=== PATIENT | female | born 1980 | race Caucasian/White ===

== ENCOUNTER 2018-08-03 05:35 | Observation (INO) | payer OTHER ==
[2018-08-03] MEDS ORDERED: LR 1,000 ML IV ONE (05:44)
[2018-08-03] MEDS ORDERED: BACITRACIN ZINC 14.2 GM OINTTUBE TP ONE (06:59)
[2018-08-03] MEDS ORDERED: BUPIVACAINE/EPI 0.5% 30 ML SDV ONE (06:59)
[2018-08-03] MEDS ORDERED: MIDAZOLAM 2 MG/2 ML VIAL IVP ONE (07:00)
[2018-08-03] MEDS ORDERED: OXYMETAZOLINE 30 ML NASAL SPRAY ONE (07:00)
[2018-08-03] MEDS ORDERED: LIDO/EPI 2%** Not for Epidural 20 ML MDV ONE (07:00)
[2018-08-03] MEDS ORDERED: SCOPOLAMINE HYDROBROMIDE 1 MG/3 DAYS PATCH TD ONE (07:00)
[2018-08-03] MEDS ORDERED: PROPOFOL/EMULSION 500 MG/50 ML BOTTLE IV ONE (07:08)
[2018-08-03] MEDS ORDERED: fentaNYL 250 MCG/5 ML INJ ONE (07:08)
[2018-08-03] MEDS ORDERED: PROPOFOL 200 MG/20 ML VIAL ONE ×5 (07:08→08:32)
[2018-08-03] MEDS ORDERED: LIDOCAINE 2% 5 ML SDV ONE ×2 (07:10→07:11)
[2018-08-03] MEDS ORDERED: ROCURONIUM 50 MG/5 ML VIAL ONE (07:10)
[2018-08-03] MEDS ORDERED: DEXAMETHASONE 4 MG/ML VIAL ONE ×3 (07:10→08:24)
--- NOTE | 2018-08-03 07:12 | PDHPUP ---
History & Physical Update H&P update statement: This history and physical update is based on an assessment of the patient which was completed after admission or registration (within 24 hours), but prior to the surgery/procedure. H&P update: H&P reviewed & patient examined, no change in patient's condition since H&P completed
--- NOTE | 2018-08-03 07:14 | PDANEPAE ---
ANE History of Present Illness Obstructive sleep apnea ANE Past Medical History Past Medical History: Pt states has had severe PONV with prior surgeries. - Cardiovascular History Hx Hypertension: No Hx Arrhythmias: No Hx Chest Pain: No Hx Coronary Artery / Peripheral Vascular Disease: No Hx CHF / Valvular Disease: No Hx Palpitations: No Cardiovascular History Comment: HAS OCCAS SKIPPED BEAT - HAS POSS SL MURMUR DX IN PAST - - Pulmonary History Hx COPD: No Hx Asthma/Reactive Airway Disease: No Hx Recent Upper Respiratory Infection: No Hx Oxygen in Use at Home: No Hx Sleep Apnea: No Sleep Apnea Screening Result - Last Documented: Positive Pulmonary History Comment: POS PRINCE - NO CPAP - Neurologic History Hx Cerebrovascular Accident: No Hx Seizures: No Hx Dementia: No - Endocrine History Hx Diabetes: No Hypothyroid: No Obesity: no - Renal History Hx Renal Disorders: No - Liver History Hx Hepatic Disorders: No - Neurological & Psychiatric Hx Hx Neurological and Psychiatric Disorders: No - Cancer History Hx Cancer: No - Congenital Disorder History Hx Congenital Disorders: No - GI History Hx Gastrointestinal Disorders: No - Other Health History Other Health History: NEG - Chronic Pain History Chronic Pain: No - Surgical History Prior Surgeries: RHINOPLASTY/SEPTOPLASTY ANE Review of Systems Review of Systems: - Exercise capacity Exercise capacity: >=4 METS METS (RN): 5 METS ANE Patient History - Allergies Allergies/Adverse Reactions: nitrofurantoin [From Macrobid] Allergy (Verified 06/27/18 10:29) Hives - Home Medications Home Medications: Levonorgestrel [[place]lyn] 1 each [id number] 06/27/18 [Last Taken 12/31/17] Spironolactone [Aldactone 25 MG (*)] 25 mg PO DAILY 06/27/18 [Last Taken ] - NPO status NPO Since - Liquids (Date): 08/02/18 NPO Since - Liquids (Time): 21:00 NPO Since - Solids (Date): 08/02/18 NPO Since - Solids (Time): 19:00 - Smoking Hx Smoking Status: Never smoked - Family Anes Hx Family Hx Anesthesia Complications: NEG ANE Labs/Vital Signs - Vital Signs Blood Pressure: 131/83 Heart Rate: 90 Respiratory Rate: 16 O2 Sat (%): 100 Height: 162.56 cm Weight: 61.235 kg ANE Physical Exam - Airway Neck exam: FROM Mallampati Score: Class 2 Mouth exam: normal dental/mouth exam - Pulmonary Pulmonary: no respiratory distress - Cardiovascular Cardiovascular: regular rate and rhythym - ASA Status ASA Status: I ANE Anesthesia Plan Anesthesia Plan: general endotracheal anesthesia (Discussed using TIVA, scopolamine patch, zofran, and dexamethasone to try and prevent PONV)
[2018-08-03] MEDS ORDERED: ONDANSETRON 4 MG/2 ML VIAL ONE (08:02)
[2018-08-03] MEDS ORDERED: ONDANSETRON 4 MG/2 ML VIAL IVP PRN (08:47)
--- NOTE | 2018-08-03 08:47 | POSTOPPROG ---
Post Op Note Date of Operation: 08/03/18 Surgeon: Sean Chávez Anesthesia: GET(General Endotracheal) Pre-op Diagnosis: PRINCE Post-op Diagnosis: PRINCE Indication: PRINCE Procedure: [place] and lingual tonsillectomy, Inf turbinate SMR and outfx Findings: Tonsillar and turbinate hypertrophy Inf/Abcess present in the surg proc area at time of surgery?: No Depth: Deep Incisional (Fascial) EBL: Minimal Complications: no Specimen(s): tonsils
[2018-08-03] MEDS ORDERED: LR 500 ML IV PRN (08:49)
[2018-08-03] MEDS ORDERED: NALOXONE HCL 0.4 MG/ML INJ IVP PRN (08:49)
[2018-08-03] MEDS ORDERED: MEPERIDINE 25 MG/0.5 ML AMP IVP PRN (08:49)
[2018-08-03] MEDS ORDERED: HYDROmorphONE/DILAUDID 2 MG/ML INJ IVP PRN (08:49)
[2018-08-03] MEDS ORDERED: HYDROCODONE/APAP 5/325 TAB PO PRN (08:49)
[2018-08-03] MEDS ORDERED: METOCLOPRAMIDE 10 MG/2 ML VIAL IVP PRN (08:49)
[2018-08-03] MEDS ORDERED: LABETALOL HCL 5 MG/ML 20 ML MDV IVP PRN (08:49)
[2018-08-03] MEDS ORDERED: PROMETHAZINE HCL 25 MG/ML INJ IVP PRN (08:49)
--- NOTE | 2018-08-03 09:17 | POSTANESTH ---
Post Anesthetic Evaluation Cardiovascular Status: Normal, Stable Respiratory Status: Normal, Stable Level of Consciousness/Mental Status: Can Participate in Eval Pain Control: Adequate, Prn Tx Ordered Nausea/Vomiting Control: Adequate, Prn Tx Ordered Complications Possibly Related to Anesthesia: None Noted
[2018-08-03] MEDS ORDERED: fentaNYL 100 MCG/2 ML INJ ONE (09:28)
[2018-08-03] MEDS: fentaNYL 100 MCG/2 ML INJ IVP PRN ×2 (09:30→09:57)
[2018-08-03] MEDS: D5W LR 1,000 ML IV SCH (12:01)
--- NOTE | 2018-08-03 15:45 | ASMTCMCOM ---
CM Note CM Note Notes: Patient admitted after scheduled tonsillectomy. She lives with her and is normally independent. No discharge needs anticipated. Date Signed: 08/03/2018 03:44 PM Electronically Signed By:Ivon Garcia RN
[2018-08-03] MEDS: OXYMETAZOLINE 30 ML NASAL SPRAY EACHNARE PRN ×2 (17:41→21:53)
[2018-08-04] MEDS: D5W LR 1,000 ML IV SCH (01:31)
[2018-08-04] MEDS: OXYMETAZOLINE 30 ML NASAL SPRAY EACHNARE PRN (01:35)
[2018-08-04] MEDS: PHENOL 177 ML THROAT SPRAY PO PRN ×2 (01:39→09:10)
[2018-08-04] MEDS ORDERED: PATCH REMOVAL 1 EA PATCH TD ONE (07:01)
[2018-08-04] MEDS ORDERED: HYDROCOD/APAP 7.5/325 IN 15ML UDCUP PO PRN (10:02)
[2018-08-04] MEDS ORDERED: DEXAMETHASONE 4 MG/ML VIAL IVP ONE (10:38)
[2018-08-04 11:15] VITALS: BP 114/69
--- NOTE | 2018-08-04 11:45 | GDS ---
CHIEF COMPLAINT: Postop palatine and lingual tonsillectomy. HOSPITAL COURSE: Patient was admitted to the hospital for airway monitoring and pain control status post lingual and palatine tonsillectomy on August 03, 2018. The patient did well postoperatively an d had good pain control and resumed an appropriate liquid diet following surgery. Given this, she wa s given orders to go home. The patient already had prescriptions for pain medicines filled prior to surgery. No other prescriptions were provided. She understands to follow up in 3 weeks or call if t here are any difficulties sooner. /[id number]/MODL
--- NOTE | 2018-08-04 12:00 | GOP ---
DATE OF OPERATION: SURGEON: Sean Chávez MD ANESTHESIA: General. PREOPERATIVE DIAGNOSIS: Obstructive sleep apnea and palatine and lingual tonsillar hypertrophy, bila teral inferior turbinate hypertrophy. POSTOPERATIVE DIAGNOSIS: Obstructive sleep apnea and palatine and lingual tonsillar hypertrophy, radha ateral inferior turbinate hypertrophy. PROCEDURE PERFORMED: Bilateral palatine tonsillectomy, lingual tonsillectomy, bilateral inferior tur binate submucosal resection and outfracture, rigid nasal endoscopy. FINDINGS: Bilateral hypertrophic inferior turbinates, bilateral tonsillar hypertrophy, lingual tonsi llar hypertrophy. SPECIMENS: Bilateral palatine tonsils. ESTIMATED BLOOD LOSS: 10 mL. INDICATIONS: Patient was seen in outpatient clinic and was found to have tonsillar hypertrophy and o bstructive sleep apnea. Given her history and findings, she was determined to be an appropriate cand idate for the above-stated procedures. The risks, benefits, and alternatives to the procedures were explained at length to the patient, who stated she understood and agreed. DESCRIPTION OF PROCEDURE: Patient was brought to the operating room by Anesthesiology and placed on the operating table. Once appropriate level of anesthesia was achieved, bilateral inferior turbinate s were injected with 0.5% bupivacaine with epinephrine. Afrin-soaked pledgets were then placed bilat erally. The peritonsillar tissues were injected with 0.5% bupivacaine with epinephrine. The patient was then prepped and draped for the nasal portion of the procedure. The pledgets were removed from the bilateral nasal cavities. Under 0-degree videoendoscopy, the nasal cavities were viewed. There was bilateral turbinate hypertrophy seen. A 2 mm turbinate microdebrider was used to create a stab i ncision at the head of the right inferior turbinate. This was run posteriorly through the turbinate completing the usual submucosal resection. There was good soft tissue reduction with this. This was then repeated at the left with a single stab incision anteriorly and running posteriorly under video endoscopic visualization. Again, there was good soft tissue reduction with this. A Rector elevator w as then used to infracture, then outfracture the right inferior turbinate, and then this was repeated at the left inferior turbinate. There was good lateralization with these procedures. There was min imal bleeding. Afrin-soaked pledgets were placed bilaterally. The patient was then reprepped and draped for the oral and oropharyngeal portion of the procedure. T he table was turned 90 degrees, and a shoulder roll was placed. A McIvor mouth gag was placed atraum atically in the oral cavity and used then was suspended on a Caputo stand. The right tonsil was excise d first using Coblation technique. There was minimal bleeding with this, and hemostasis was achieved using Coblation cautery alone. The left tonsil was then excised using Coblation technique. There w as minimal bleeding with this, and hemostasis was achieved using Coblation cautery alone. Two 4-0 Pr olene sutures were used to close each tonsillar fossa with interrupted sutures. There was minimal bl eeding at the sites, and the McIvor mouth gag was then removed. A small blade was placed on the McIv or mouth gag. A silk suture was placed through the tongue and used to retract the tongue as the smal l McIvor was placed in the oral cavity and everted posteriorly in order to retract the posterior tong ue. As the mouth gag was deployed, it was then suspended on a Caputo stand. A 70-degree rigid endosco pe was then used to visualize the lingual tonsil. Coblation technique was used to ablate and cauteri ze the lingual tonsil. There was significant soft tissue reduction with this from the vallecula thro ugh to the circumvallate papillae superiorly. Minimal bleeding. Once the tonsillar tissue was near completely removed, the oral cavity was suctioned out. An OG tube was then passed to suction out the stomach. The tongue suture was released and removed. The McIvor mouth gag was then removed. The p atient tolerated these procedures well and was extubated in the operating room prior to being transfe rred in good condition to postanesthesia care unit. COMPLICATIONS: None. /[id number]/MODL
== END 2018-08-04 11:19 | disposition home or self-care (01) ==
LOC: F3E 05:35
PROVIDERS: ADMIT Otolaryngology; ATTEND Otolaryngology
DX: G47.33 Obstructive sleep apnea (adult) (pediatric) (principal); J35.1 Hypertrophy of tonsils; J34.3 Hypertrophy of nasal turbinates
CPT/HCPCS: 30140; 42821; G0378; J1100; J2250; J2270; J2405; J2704; J3010